=== PATIENT | female | born 1995 | race Hispanic/Latino ===

== ENCOUNTER → 2017-11-12 | Day surgery (SDC) | payer BC, OTHER ==
[~2017-11-12] MED LIST: DEXAMETHASONE SOD PHOS INJ 4 MG/ML VIAL ONE; FENTANYL CITRATE/PF 100MCG/2 ML INJ ONE; GLYCOPYRROLATE INJ 1MG/ 5 ML SYR ONE; LIDOCAINE 1% W/EPINEPHRINE 20 ML VIAL ONE; LIDOCAINE HCL 2% LOCAL INJ 5 ML SDV VIAL INJ ONE; MIDAZOLAM HCL 2 MG/2 ML VIAL ONE; MONESSA PO; NEOSTIGMINE 5 MG/5ML SYR ONE; ONDANSETRON HCL INJ 2 MG/ML VIAL ONE; PROPOFOL IV EMULSION 10 MG/ML 20 ML VIAL ONE; ROCURONIUM BROMIDE 10 MG/ML 5ML VIAL ONE; SEVOFLURANE INHAL SOLN 250 ML PEN BTL ONE; VIT D PO
--- NOTE | 2017-11-12 09:08 | Operative Report ---
DATE OF PROCEDURE: November 12, 2017 PREOPERATIVE DIAGNOSIS: Anterior ventral tongue-tip lesion. POSTOPERATIVE DIAGNOSIS: Anterior ventral tongue-tip lesion. PROCEDURE: Excision of anterior ventral tongue-tip lesion. SIGNIFICANT FINDINGS: A 4-mm soft tissue mass on ventral surface of anterior tongue (tip) sent for permanent pathology. ANESTHESIA: General endotracheal tube anesthesia. SPECIMENS REMOVED: Anterior ventral tongue-tip lesion. ESTIMATED BLOOD LOSS: Less than 1 mL. COMPLICATIONS: None. INDICATIONS: Patient is a 22-year-old female with a lesion in the ventral surface of the tongue tip. This lesion appears cystic and swells intermittently until it pops, then drains blood. The fluid containing lesion or cyst lasts about 2 days at a time. She is a nonsmoker. She has had no previous mouth or tongue surgery. On examination, there was approximately a 4 mm collapsed cystic lesion on the ventral surface of the tongue tip. She is scheduled for excision of anterior ventral tongue-tip lesion under general anesthesia. Risks and complications of the procedure were thoroughly discussed with patient and her mother, and they included infection, bleeding, scarring, failure to improve, need for additional operations, recurrence of mass and need for further excision, deformed appearance of the tongue, inability to taste, chronic pain, need for blood transfusions, possibility of malignancy and need for further treatment, damage to surrounding nerves, blood vessels, and muscles. They fully understand and gave consent. DESCRIPTION OF PROCEDURE: The patient was taken to the operating room and placed supine on the operating table where general anesthesia was achieved through orotracheal intubation. The area was then prepped and draped in usual sterile fashion. The tongue-tip was then retracted anteriorly until the mass was visualized. There was approximately 4-mm soft tissue mass in the anterior portion of the tongue in the tongue tip. The mass was then addressed. Injection with 1% lidocaine with 1:100,000 epinephrine was injected at the base of the mass. Following this, elliptical incision was then made at the base of the mass to include a rim of normal tongue tissue. The mass was then excised in its entirely including the deeper musculature area. The mass was sent for permanent section analysis. Hemostasis was obtained with bipolar cautery. The wound was then repaired with a single 4-0 Monocryl stitch in the deep musculature. Patient was awakened in the operating room, extubated, and taken to the recovery room in good condition. Job#: [id number]
== END | disposition home or self-care (01) ==
LOC: OR 06:37
PROVIDERS: ATTEND Otolaryngology
DX: K14.8 Other diseases of tongue (principal)
CPT/HCPCS: 41112; 81025; 88305; J1100; J2001; J2250; J2405

== ENCOUNTER → 2021-06-28 | Outpatient (CLI) | payer BC ==
[~2021-06-28] MED LIST changes: -DEXAMETHASONE SOD PHOS INJ 4 MG/ML VIAL ONE; -FENTANYL CITRATE/PF 100MCG/2 ML INJ ONE; -GLYCOPYRROLATE INJ 1MG/ 5 ML SYR ONE; -LIDOCAINE 1% W/EPINEPHRINE 20 ML VIAL ONE; -LIDOCAINE HCL 2% LOCAL INJ 5 ML SDV VIAL INJ ONE; -MIDAZOLAM HCL 2 MG/2 ML VIAL ONE; -NEOSTIGMINE 5 MG/5ML SYR ONE; -ONDANSETRON HCL INJ 2 MG/ML VIAL ONE; -PROPOFOL IV EMULSION 10 MG/ML 20 ML VIAL ONE; -ROCURONIUM BROMIDE 10 MG/ML 5ML VIAL ONE; -SEVOFLURANE INHAL SOLN 250 ML PEN BTL ONE
== END ==
LOC: US 09:36
PROVIDERS: ATTEND Internal Medicine Gastroenterology
DX: R10.10 Upper abdominal pain, unspecified (principal)
CPT/HCPCS: 76700